=== PATIENT | female | born 1980 | race Caucasian/White ===

== ENCOUNTER 2025-01-08 23:36 | Emergency (ER) | payer OTHER ==
[2025-01-08] MEDS ORDERED: Ondansetron PF 4 MG/2 ML Vial ONE (23:49)
[2025-01-09 00:20] LABS: Cocaine Metabolite Screen Negative (Negative); THC/Cannabinoid Screen Negative (Negative); Tricyclic Screen Negative (Negative)
[2025-01-09 00:21] LABS: #Basophils 0.1 thou/uL (0.0-0.2); #Eosinophils 0.7 thou/uL (0.0-0.7); #Lymphocytes 4.8 thou/uL (1.20-3.40); #Monocytes 0.7 thou/uL (0.11-0.59); #Neutrophils 4.1 thou/uL (1.40-6.50); %Basophils 0.9 % (0.0-1.0); %Eosinophils 6.8 % (0.0-10.0); %Lymphocytes 46.0 % (21.0-51.0); %Monocytes 6.9 % (0.0-10.0); %Neutrophils 39.3 % (42.0-75.0); Hematocrit 40.4 % (36.0-47.0); Hemoglobin 13.9 g/dL (12.0-16.0); Mean Corpuscular Hemoglobin 30.9 pg (27.0-31.0); Mean Corpuscular Volume 90.3 fl (78.0-98.0); Platelet Count 311 10x3/uL (130-400); Red Blood Cell (RBC) Count 4.48 mill/uL (4.20-5.40); White Blood Cell (WBC) Count 10.3 10x3/uL (4.8-10.8)
[2025-01-09 01:12] LABS: Acetaminophen Less than 10 mcg/mL (Less than 10); Salicylate Less than 8.0 mg/dL (Less than 8.0)
[2025-01-09 01:13] LABS: ALT (SGPT) 18 U/L (Less than 34); AST (SGOT) 31 U/L (11-34); Albumin 4.8 g/dL (3.1-4.5); Alkaline Phosphatase 54 U/L (40-110); Anion Gap 19 mmol/L (10-20); BUN (Urea Nitrogen) 13 mg/dL (7.0-18.7); Bilirubin, Total 0.2 mg/dL (0.3-1.2); Calc. Creatinine Clearance 0 mL/min (70-130); Calcium 9.1 mg/dL (7.8-10.44); Carbon Dioxide 22 mmol/L (22-29); Chloride 104 mmol/L (98-107); Globulin 3.1 g/dL (2.4-3.5); Glucose 94 mg/dL (70-105); Potassium 3.9 mmol/L (3.5-5.1); Sodium 141 mmol/L (136-145)
== END 2025-01-09 03:57 | disposition home or self-care (01) ==
LOC: NAV ERS 23:36
DX: F10.129 Alcohol abuse with intoxication, unspecified (principal); Y90.8 Blood alcohol level of 240 mg/100 ml or more
CPT/HCPCS: 36415; 36416; 51701; 80053; 80306; 80307; 85025; 93005; 96374; J2405; J7030